=== PATIENT | female | born 1975 | race African-American/Black ===

== ENCOUNTER 2018-07-28 18:06 | Emergency (ER) | payer MEDICAID, MEDICARE ==
[~2018-07-28] VITALS: Ht 167.6 cm; Wt 63.0 kg
[2018-07-28 18:09] VITALS: BP 172/95
== END 2018-07-28 22:36 | disposition left against medical advice (07) ==
LOC: ER 18:06
DX: M25.531 Pain in right wrist (principal); Z53.21 Procedure and treatment not carried out due to patient leaving prior to being seen by health care provider